=== PATIENT | male | born 1990 | race Caucasian/White ===

== ENCOUNTER → 2017-01-10 | Outpatient (CLI) | payer OTHER ==
--- NOTE | 2017-01-10 16:04 | REP ---
Clinical: Bilateral flank pain. Comparison: None. Findings: Evaluation of the urinary tract system demonstrates normal bilateral kidneys, ureters and bladder. No perinephric stranding, hydroureteronephrosis, intrarenal or obstructing ureteral calculi are identified. Liver, spleen, pancreas, gallbladder, and bilateral adrenal glands are normal. The enteric system is without obstruction or acute inflammatory process. Pelvis demonstrates normal bladder and age appropriate prostate/seminal vesicles. No ascites. No free air. No adenopathy. Small area of acute versus chronic fibroatelectatic change in the left base requires correlation and possible follow-up if necessary in 6-9 months. Impression: 1. Normal noncontrast CT of the abdomen and pelvis. Specifically, normal urinary tract system. 2. Small area of fibroatelectatic change in the left lung base warrants correlation and possible 6-9 months follow-up chest CT . Signed by Aayush Hook MD 01/10/2017 03:56 P
== END ==
LOC: M RAD 15:22
PROVIDERS: ATTEND Internal Medicine Nephrology
DX: N20.0 Calculus of kidney (principal)

== ENCOUNTER → 2017-02-16 | Outpatient (CLI) | payer OTHER ==
[~2017-02-16] MED LIST: CONRAY-43 43% 50ML VIAL (Q9960) As Ordered ONE; LIDOCAINE 1% MDV 20ML VIAL As Ordered ONE; TRIAMCINOLONE ACETONIDE SUSP 40 MG/ML VIAL (J3301) As Ordered ONE
== END ==
LOC: M RADPRO 09:57
PROVIDERS: ATTEND Orthopaedic Surgery
DX: M25.552 Pain in left hip (principal); Z53.9 Procedure and treatment not carried out, unspecified reason

== ENCOUNTER → 2017-03-11 | Outpatient (CLI) | payer OTHER ==
--- NOTE | 2017-03-14 08:42 | REP ---
Left hip injection The procedure was performed under the direct supervision of Dr. Izquierdo. The benefits and risks including but not limited to pain infection and bleeding and anaphylaxis were explained to the patient and informed consent was obtained. The left femoral neck was localized using fluoroscopic guidance. The skin was prepped and draped in a sterile fashion. 1% lidocaine was used as a local anesthetic. Using fluoroscopic guidance a 22-gauge spinal needle was inserted and advanced to the femoral neck. 0.5 ml of Conray 43 was injected to verify placement. 10 ml of a solution containing 9 ml of 1% Xylocaine and 1 ml of Kenalog 40 mg was injected. The needle was then removed. The patient tolerated the procedure well and there were no immediate complications. Two seconds of fluoro time was utilized for this procedure. Reviewed by RAQUEL Frost 03/11/2017 04:12 PSigned by Augustine Izquierdo MD 03/14/2017 08:34 A
== END ==
LOC: M RADPRO 10:36
PROVIDERS: ATTEND Orthopaedic Surgery
DX: M25.552 Pain in left hip (principal); M24.152 Other articular cartilage disorders, left hip
CPT/HCPCS: 20610; 77002; J3301; Q9960

== ENCOUNTER → 2017-07-05 | Outpatient (CLI) | payer OTHER ==
[~2017-07-05] MED LIST changes: -CONRAY-43 43% 50ML VIAL (Q9960) As Ordered ONE; +ISOVUE-370 76% 100ML VIAL (Q9967) As Ordered ONE; -LIDOCAINE 1% MDV 20ML VIAL As Ordered ONE; -TRIAMCINOLONE ACETONIDE SUSP 40 MG/ML VIAL (J3301) As Ordered ONE
--- NOTE | 2017-07-05 14:41 | REP ---
Clinical: Abnormal chest findings. Technique: Axial contrast enhanced images from the thoracic inlet to the upper abdomen using 100 ml Isovue 370 intravenous contrast material with coronal and sagittal re-formations. Comparison: 01/10/2017. Findings: The bilateral lung gonzalez are well-aerated, symmetric, and clear. No pulmonary parenchymal consolidation, nodule or mass lesion is appreciated. No pleural effusion/reaction or pneumothorax. Tracheobronchial tree is patent. No adenopathy. The mediastinum demonstrates normal thoracic aorta, pulmonary vasculature and heart/pericardium. Surrounding musculoskeletal structures are intact. The previously identified irregular density in the left base has resolved and likely represented small focus of atelectasis. Impression: Normal contrast enhanced chest CT. Previously identified density in the left base has resolved. Signed by Aayush Hook MD 07/05/2017 02:33 P
== END ==
LOC: M RAD 13:52
PROVIDERS: ATTEND Internal Medicine Nephrology
DX: R91.1 Solitary pulmonary nodule (principal)
CPT/HCPCS: 71260; Q9967